=== PATIENT | male | born 1935 | race Caucasian/White ===

== ENCOUNTER 2021-06-04 10:19 | Emergency (ER) | payer MEDICARE, OTHER ==
[~2021-06-04] VITALS: Ht 172.7 cm; Wt 72.6 kg
[2021-06-04 10:38] LABS: BASOPHILS % 0.5 % (0.0-1.0); EOSINOPHILS # (AUTO) 0.3 (0.0-0.4); EOSINOPHILS % 3.4 % (0.0-6.0); HEMATOCRIT 36.5 % (38.2-49.6); LYMPHOCYTES # (AUTO) 2.2 (1.0-3.2); LYMPHOCYTES % 25.4 % (18.0-39.1); MEAN CORPUSCULAR HEMOGLOBIN 31.9 pg (28-32); MEAN CORPUSCULAR HGB CONC 32.9 g/dL (31-35); MEAN CORPUSCULAR VOLUME 97.1 fL (81-99); MONOCYTES # (AUTO) 0.5 (0.2-0.8); MONOCYTES % 5.3 % (4.4-11.3); NEUTROPHILS # (AUTO) 5.5 (2.1-6.9); NEUTROPHILS % 65.2 % (38.7-80.0); PLATELET COUNT 214 x10e3/uL (140-360); RED BLOOD COUNT 3.76 x10e6/uL (4.3-5.7); RED CELL DISTRIBUTION WIDTH 13.5 % (11.7-14.4)
[2021-06-04] MEDS ORDERED: SODIUM CHLORIDE 0.9% 1000ML 1,000 ML ONE (10:42)
[2021-06-04] MEDS ORDERED: SODIUM CHLORIDE 0.9% 1000ML 1,000 ML IV ONE (10:45)
[2021-06-04 11:04] LABS: ALBUMIN 2.8 g/dL (3.5-5.0); ALBUMIN/GLOBULIN RATIO 0.7 (0.8-2.0); ANION GAP 10.3 mmol/L (8-16); CALCIUM 9.1 mg/dL (8.4-10.2); CREATININE, SERUM 1.08 mg/dL (0.72-1.25); POTASSIUM 3.3 mmol/L (3.5-5.1)
[2021-06-04 11:46] LABS: CLARITY,URINE CLEAR (CLEAR); COLOR,URINE YELLOW (YELLOW); LEUKOCYTE ESTERASE ,URINE NEGATIVE (NEGATIVE)
[2021-06-04 11:47] LABS: KETONES,URINE NEGATIVE (NEGATIVE); NITRITE,URINE NEGATIVE (NEGATIVE); PROTEIN,URINE DIPSTICK NEGATIVE (NEGATIVE); URINE UROBILINOGEN 1 mg/dL (0.2 - 1)
[2021-06-04 12:00] LABS: BACTERIA,URINE RARE /HPF; EPITHELIAL CELLS,URINE RARE /LPF; WBC,URINE (MAN) 0-5 /HPF (0-5)
[2021-06-04] MEDS ORDERED: DOXYCYCLINE HY100 MG PO (12:14)
[2021-06-09] MEDS ORDERED: BENZONATATE100 MG PO (19:13)
[2021-06-09] MEDS ORDERED: TRAZODONE HCL50 MG PO (19:13)
[2021-06-09] MEDS ORDERED: ADVAIR 250-501 EACH INH (19:13)
[2021-06-09] MEDS ORDERED: VITAMIN B-121000 MCG PO (19:13)
[2021-06-09] MEDS ORDERED: FLOMAX0.4 MG PO (19:13)
[2021-06-09] MEDS ORDERED: ASPIRIN CHEW81 MG PO (19:13)
[2021-06-09] MEDS ORDERED: SINEMET 25-1001 EACH PO (19:13)
[2021-06-09] MEDS ORDERED: FUROSEMIDE40 MG PO (19:13)
[2021-06-09] MEDS ORDERED: NEURONTIN100 MG PO (19:13)
[2021-06-09] MEDS ORDERED: FINASTERIDE5 MG PO (19:13)
[2021-06-09] MEDS ORDERED: VOLTAREN ARTHRI20 GM TP (19:13)
[2021-06-09] MEDS ORDERED: ULTRAM50 MG PO (19:13)
[2021-06-09] MEDS ORDERED: SIMVASTATIN20 MG PO (19:13)
[2021-06-09] MEDS ORDERED: LOSARTAN POTASS25 MG PO (19:13)
[2021-06-09] MEDS ORDERED: ARICEPT5 MG PO (19:13)
[2021-06-09] MEDS ORDERED: COMBIVENT RESPIM4 GM IH (19:13)
== END 2021-06-04 13:59 | disposition home or self-care (01) ==
LOC: ER 10:45
DX: R53.1 Weakness (principal); G20 Parkinson's disease; I10 Essential (primary) hypertension; E78.5 Hyperlipidemia, unspecified; I25.10 Atherosclerotic heart disease of native coronary artery without angina pectoris; R94.31 Abnormal electrocardiogram [ECG] [EKG]
CPT/HCPCS: 36415; 51702; 70450; 71045; 80053; 81001; 84484; 85025; 93005; 99284; J7030; 51700